=== PATIENT | female | born 1960 | race Caucasian/White ===

== ENCOUNTER 2021-09-30 16:17 | Inpatient (IN) ==
[2021-09-30] MEDS ORDERED: 0.9 % Sodium Chloride 1,000 ML IVC ONE (17:19)
[2021-09-30 18:10] LABS: Basophils % 0.3 %; Hematocrit 38.6 % (35.3-44.9); Hemoglobin 13.1 g/dL (11.5-15.4); Immature Granulocytes % 1.2 % (0-4); Lymphocytes # 2.6 K/mcL (0.6-4.6); Lymphocytes % 21.4 %; Mean Corpuscular HGB Conc 33.9 g/dL (31.6-35.5); Mean Corpuscular Hemoglobin 26.8 pg (28.0-33.3); Mean Corpuscular Volume 79.1 fL (83.0-100.0); Mean Platelet Volume 9.7 fL (9.4-12.4); Monocytes # 1.3 K/mcL (0.0-1.3); Monocytes % 10.6 %; Neutrophils # 8.2 K/mcL (1.6-8.9); Platelet Count 127 K/mcL (140-400); Red Blood Count 4.88 M/mcL (3.82-4.97); Red Cell Distribution Width 14.6 % (11.5-14.5); Segmented Neutrophils % 66.5 %; White Blood Count 12.3 K/mcL (4.3-11.1)
[2021-09-30 18:34] LABS: Alanine Aminotransferase 48 Units/L (7-52); Albumin 3.7 g/dL (3.5-5.7); Albumin/Globulin Ratio 1.4 (1.1-2.2); Alkaline Phosphatase 66 Units/L (34-104); Aspartate Amino Transferase 57 Units/L (13-39); BUN/Creatinine Ratio 27 (6-26); Bilirubin,Direct 0.1 mg/dL (0.0-0.2); Bilirubin,Indirect 0.5 mg/dL (0.0-1.0); Bilirubin,Total 0.6 mg/dL (0.3-1.0); Blood Urea Nitrogen 44 mg/dL (8-23); Calcium 9.1 mg/dL (8.6-10.3); Carbon Dioxide 26 mEq/L (23-29); Chloride 95 mEq/L (98-107); Ethanol < 10 mg/dL (Less than 10); Globulin 2.6 g/dL (2.4-3.5); Glucose 154 mg/dL (70-105); Osmolality,Calculated 292 (280-300); Potassium 3.3 mEq/L (3.5-5.1); Sodium 134 mEq/L (136-145); Total Protein 6.3 g/dL (6.4-8.9); Troponin I < 0.03 ng/mL (< 0.04); eGFR For African Americans 40 (> 60); eGFR For Non-African Americans 33 (> 60)
[2021-09-30] MEDS ORDERED: Ondansetron 4 MG/2 ML VIAL IVP ONE (19:29)
[2021-09-30 19:37] LABS: Bacteria,Urine Few per hpf (None-Few); Bilirubin,Urine Small (Negative); Blood,Urine Negative (Negative); Clarity,Urine Turbid (Clear); Color,Urine Yellow (Yellow); Glucose,Urine (UA) 50 mg/dL (Normal); Ketones,Urine 20 mg/dL (Negative); Leukocyte Esterase,Urine Negative (Negative); Mucus,Urine Few per lpf (None-Few); Nitrite,Urine Negative (Negative); Protein,Urine 70 mg/dL (Neg-Trace); RBC,Urine 0-3 per hpf (0-3); Specific Gravity,Urine 1.028 (1.010-1.025); Squamous Epithelial Cell,Urine Few per hpf (None-Few); Urobilinogen,Urine Normal (Normal); WBC,Urine 0-3 per hpf (0-3)
[2021-09-30 19:41] LABS: Amphetamine Screen,Urine Negative ng/mL (Cutoff=1000); Barbiturate Screen,Urine Negative ng/mL (Cutoff=200); Benzodiazepines Screen,Urine Negative ng/mL (Cutoff=200); Cannabinoid Screen,Urine Negative ng/mL (Cutoff = 50); Cocaine Screen,Urine Negative ng/mL (Cutoff= 300); Opiate Screen,Urine Negative ng/mL (Cutoff=300); Phencyclidine Screen,Urine Negative ng/mL (Cutoff=25)
[2021-09-30] MEDS ORDERED: Naloxone 0.4 MG/ML INJ IVP PRN (22:10)
[2021-09-30] MEDS ORDERED: Ipratropium/Albuterol Neb 3 ML IH PRN (22:14)
[2021-09-30] MEDS ORDERED: D5% in Water 1,000 ML IVC PRN (22:15)
[2021-09-30] MEDS ORDERED: Dextrose 4 GM Chewable Tablets PO PRN ×2 (22:15)
[2021-09-30] MEDS ORDERED: *HR* Dextrose 50 % in Water (Syg) 50 ML SYRINGE IVP PRN (22:15)
[2021-09-30] MEDS ORDERED: Gabapentin 300 MG CAPSULE PO PRN (23:48)
[2021-09-30] MEDS ORDERED: Nystatin POWDER 30 GM BOTTLE TP PRN (23:48)
[2021-09-30] MEDS: 0.9 % Sodium Chloride 1,000 ML IVC SCH (23:54)
[2021-10-01] MEDS: 0.9 % Sodium Chloride 1,000 ML IVC SCH ×2 (01:04→14:58)
[2021-10-01 01:05] LABS: Basophils % 0.2 %; Immature Granulocytes % 0.9 % (0-4); Mean Corpuscular HGB Conc 34.8 g/dL (31.6-35.5)
[2021-10-01 01:08] LABS: Estimated Average Glucose 103 mg/dl; Hematocrit 37.6 % (35.3-44.9); Hemoglobin 13.1 g/dL (11.5-15.4); Hemoglobin A1C 5.2 %; Immature Platelets 5.5 % (1.1-6.1); Lymphocytes # 2.8 K/mcL (0.6-4.6); Mean Corpuscular Hemoglobin 26.6 pg (28.0-33.3); Mean Corpuscular Volume 76.4 fL (83.0-100.0); Mean Platelet Volume 10.4 fL (9.4-12.4); Monocytes # 1.1 K/mcL (0.0-1.3); Monocytes % 10.9 %; Neutrophils # 6.4 K/mcL (1.6-8.9); Platelet Count 121 K/mcL (140-400); Red Blood Count 4.92 M/mcL (3.82-4.97); Red Cell Distribution Width 14.4 % (11.5-14.5); White Blood Count 10.5 K/mcL (4.3-11.1)
[2021-10-01 01:12] LABS: INR 1.5; Prothrombin Time 16.3 Seconds (9.4-12.1)
[2021-10-01 01:30] LABS: BUN/Creatinine Ratio 30 (6-26); Blood Urea Nitrogen 41 mg/dL (8-23); Calcium 8.8 mg/dL (8.6-10.3); Carbon Dioxide 21 mEq/L (23-29); Chloride 97 mEq/L (98-107); Chol/HDL Ratio 5.9 (0-4.9); Cholesterol 207 mg/dL (< 200); Glucose 122 mg/dL (70-105); HDL Cholesterol 35 mg/dL (40-59); Iron 67 mcg/dL (50-170); LDL Cholesterol,Calculated 123 mg/dL (< 100); Lactate Dehydrogenase 219 Units/L (140-271); Magnesium 1.4 mg/dL (1.6-2.6); Osmolality,Calculated 291 (280-300); Phosphorous 1.2 mg/dL (2.7-4.5); Potassium 3.2 mEq/L (3.5-5.1); Sodium 135 mEq/L (136-145); Triglycerides 247 mg/dL (< 150); Troponin I < 0.03 ng/mL (< 0.04); eGFR For African Americans 48 (> 60); eGFR For Non-African Americans 40 (> 60)
[2021-10-01 01:33] LABS: % Iron Saturation 29 % (15-50); Transferrin 164 mg/dL (203-362)
[2021-10-01 01:41] LABS: Thyroid Stimulating Hormone 3.695 mcIU/mL (0.340-5.600)
[2021-10-01 01:46] LABS: Ferritin 339 ng/mL (10-120)
[2021-10-01 01:48] LABS: Folate 8.9 ng/mL (3.0-16.0)
[2021-10-01] MEDS: *HR* Heparin 5,000 UNIT/ML VIAL SQ SCH ×3 (04:33→21:50)
[2021-10-01] MEDS: Ondansetron 4 MG/2 ML VIAL IVP PRN ×3 (04:47→21:34)
[2021-10-01] MEDS: Insulin LISPRO 300 UNITS/3 ML VIAL SUBQ SCH ×3 (08:14→16:26)
[2021-10-01] MEDS: Divalproex (12 HR) 500 MG TABLET PO SCH ×2 (09:36→21:44)
[2021-10-01] MEDS: (Colestipol Hcl [Colestid] 1 GM Tablet) PO SCH (09:36)
[2021-10-01] MEDS: Metoprolol XL (24 HR) Succ 25 MG TAB.ER.24H PO SCH (09:37)
[2021-10-01] MEDS: OLANZapine 5 MG TAB.RAPDIS PO SCH (09:37)
[2021-10-01 09:50] LABS: Acetaminophen < 10 mcg/mL (10-20); Lipase 25 Units/L (11-82); Salicylate < 2.5 mg/dL (15.0-30.0)
[2021-10-01 10:41] LABS: INR 1.3; Prothrombin Time 14.8 Seconds (9.4-12.1)
[2021-10-01 10:44] LABS: Albumin 3.3 g/dL (3.5-5.7); Albumin/Globulin Ratio 1.4 (1.1-2.2); Bilirubin,Direct 0.1 mg/dL (0.0-0.2); Bilirubin,Indirect 0.5 mg/dL (0.0-1.0); Bilirubin,Total 0.6 mg/dL (0.3-1.0); Globulin 2.3 g/dL (2.4-3.5); Total Protein 5.6 g/dL (6.4-8.9)
[2021-10-01] MEDS: hydrOXYzine pamoate 25 MG CAPSULE PO SCH (21:43)
[2021-10-01] MEDS: Insulin DETEMIR 100 UNIT/ML X5UNITS SUBQ SCH (21:44)
[2021-10-02 01:31] LABS: Basophils % 0.1 %; Hemoglobin 11.8 g/dL (11.5-15.4)
[2021-10-02 01:34] LABS: Eosinophils % 0.1 %; Hematocrit 34.4 % (35.3-44.9); Immature Granulocytes % 1.2 % (0-4); Immature Platelets 2.3 % (1.1-6.1); Lymphocytes # 2.5 K/mcL (0.6-4.6); Lymphocytes % 36.7 %; Mean Corpuscular HGB Conc 34.3 g/dL (31.6-35.5); Mean Corpuscular Hemoglobin 26.6 pg (28.0-33.3); Mean Corpuscular Volume 77.7 fL (83.0-100.0); Mean Platelet Volume 9.5 fL (9.4-12.4); Monocytes # 0.7 K/mcL (0.0-1.3); Monocytes % 10.9 %; Neutrophils # 3.4 K/mcL (1.6-8.9); Platelet Count 114 K/mcL (140-400); Red Blood Count 4.43 M/mcL (3.82-4.97); Red Cell Distribution Width 14.4 % (11.5-14.5); White Blood Count 6.7 K/mcL (4.3-11.1)
[2021-10-02 01:50] LABS: BUN/Creatinine Ratio 25 (6-26); Blood Urea Nitrogen 26 mg/dL (8-23); Calcium 8.1 mg/dL (8.6-10.3); Carbon Dioxide 26 mEq/L (23-29); Chloride 98 mEq/L (98-107); Glucose 126 mg/dL (70-105); Osmolality,Calculated 282 (280-300); Potassium 3.4 mEq/L (3.5-5.1); Sodium 133 mEq/L (136-145); eGFR For African Americans > 60 (> 60); eGFR For Non-African Americans 53 (> 60)
[2021-10-02] MEDS ORDERED: *HR* Metoprolol 5 MG/5 ML VIAL IVP ONE (03:25)
[2021-10-02] MEDS: 0.9 % Sodium Chloride 1,000 ML IVC SCH ×2 (04:33→17:56)
[2021-10-02] MEDS: *HR* Heparin 5,000 UNIT/ML VIAL SQ SCH ×3 (05:37→23:31)
[2021-10-02] MEDS: Insulin LISPRO 300 UNITS/3 ML VIAL SUBQ SCH ×3 (07:13→16:49)
[2021-10-02] MEDS: OLANZapine 5 MG TAB.RAPDIS PO SCH (09:24)
[2021-10-02] MEDS: Divalproex (12 HR) 500 MG TABLET PO SCH ×2 (09:24→23:44)
[2021-10-02] MEDS: (Colestipol Hcl [Colestid] 1 GM Tablet) PO SCH (09:24)
[2021-10-02] MEDS: Metoprolol XL (24 HR) Succ 25 MG TAB.ER.24H PO SCH (09:24)
[2021-10-02] MEDS ORDERED: Ondansetron ODT 4 MG TAB.RAPDIS SL ONE (19:34)
[2021-10-02] MEDS: Insulin DETEMIR 100 UNIT/ML X5UNITS SUBQ SCH (23:32)
[2021-10-02] MEDS: hydrOXYzine pamoate 25 MG CAPSULE PO SCH (23:44)
[2021-10-02] MEDS ORDERED: *HR* Labetalol 20 MG/4 ML SYRINGE IVP ONE (23:51)
[2021-10-03] MEDS: Ondansetron 4 MG/2 ML VIAL IVP PRN ×2 (04:11→20:43)
[2021-10-03 04:20] LABS: Basophils % 0.3 %; Eosinophils % 0.1 %; Hematocrit 37.8 % (35.3-44.9); Immature Platelets 3.3 % (1.1-6.1); Lymphocytes # 2.9 K/mcL (0.6-4.6); Lymphocytes % 30.1 %; Mean Corpuscular HGB Conc 34.4 g/dL (31.6-35.5); Mean Corpuscular Hemoglobin 26.6 pg (28.0-33.3); Mean Corpuscular Volume 77.3 fL (83.0-100.0); Mean Platelet Volume 10.2 fL (9.4-12.4); Monocytes # 1.1 K/mcL (0.0-1.3); Monocytes % 11.9 %; Neutrophils # 5.4 K/mcL (1.6-8.9); Platelet Count 116 K/mcL (140-400); Red Blood Count 4.89 M/mcL (3.82-4.97); Red Cell Distribution Width 14.2 % (11.5-14.5); Segmented Neutrophils % 56.6 %; White Blood Count 9.5 K/mcL (4.3-11.1)
[2021-10-03 04:34] LABS: BUN/Creatinine Ratio 16 (6-26); Blood Urea Nitrogen 14 mg/dL (8-23); Calcium 8.5 mg/dL (8.6-10.3); Carbon Dioxide 26 mEq/L (23-29); Chloride 97 mEq/L (98-107); Glucose 117 mg/dL (70-105); Osmolality,Calculated 276 (280-300); Potassium 3.2 mEq/L (3.5-5.1); Sodium 132 mEq/L (136-145); eGFR For African Americans > 60 (> 60); eGFR For Non-African Americans > 60 (> 60)
[2021-10-03] MEDS: *HR* Heparin 5,000 UNIT/ML VIAL SQ SCH ×3 (05:17→23:28)
[2021-10-03] MEDS: Insulin LISPRO 300 UNITS/3 ML VIAL SUBQ SCH ×3 (07:31→16:13)
[2021-10-03] MEDS: 0.9 % Sodium Chloride 1,000 ML IVC SCH (08:14)
[2021-10-03] MEDS: OLANZapine 5 MG TAB.RAPDIS PO SCH (08:37)
[2021-10-03] MEDS: Divalproex (12 HR) 500 MG TABLET PO SCH ×2 (08:38→23:27)
[2021-10-03] MEDS: (Colestipol Hcl [Colestid] 1 GM Tablet) PO SCH (08:38)
[2021-10-03] MEDS: Metoprolol XL (24 HR) Succ 25 MG TAB.ER.24H PO SCH (08:38)
[2021-10-03] MEDS: Insulin DETEMIR 100 UNIT/ML X5UNITS SUBQ SCH (19:58)
[2021-10-03] MEDS: hydrOXYzine pamoate 25 MG CAPSULE PO SCH (23:28)
[2021-10-04] MEDS ORDERED: Prochlorperazine 10 MG/2 ML VIAL IVP PRN (01:32)
[2021-10-04] MEDS ORDERED: *HR* Metoprolol 5 MG/5 ML VIAL IVP ONE (02:57)
[2021-10-04] MEDS: *HR* Heparin 5,000 UNIT/ML VIAL SQ SCH ×2 (05:55→11:52)
[2021-10-04] MEDS: Insulin LISPRO 300 UNITS/3 ML VIAL SUBQ SCH ×3 (08:38→15:36)
[2021-10-04] MEDS ORDERED: amLODIPine 5 MG TABLET PO SCH (09:00)
[2021-10-04] MEDS: Divalproex (12 HR) 500 MG TABLET PO SCH (09:28)
[2021-10-04] MEDS: Metoprolol XL (24 HR) Succ 25 MG TAB.ER.24H PO SCH (09:28)
[2021-10-04] MEDS: OLANZapine 5 MG TAB.RAPDIS PO SCH (09:28)
[2021-10-04] MEDS: (Colestipol Hcl [Colestid] 1 GM Tablet) PO SCH (09:29)
[2021-10-04 11:05] VITALS: O2SAT 98
[2021-10-04 14:05] LABS: Influenza A PCR Negative (Negative); Influenza B PCR Negative (Negative); Resp. Syncytial Virus PCR Negative (Negative)
[2021-10-04 14:21] LABS: SARS-CoV-2 by PCR (In House) Negative (Negative)
[2021-10-04 14:56] VITALS: BP 144/92; PULSE 89; TEMP 98.9
== END 2021-10-04 16:52 | DRG 42 ==
LOC: EMEROOARM 16:17 → 3BNU 16:17 → SUATTDRO 22:00 → 3BNU 23:07
PROVIDERS: ADMIT Student in an Organized Health Care Education/Training Program; ATTEND Student in an Organized Health Care Education/Training Program